=== PATIENT | male | born 1975 | race Caucasian/White ===

== ENCOUNTER 2021-04-12 12:03 | Outpatient (CLI) | payer OTHER, SELFPAY ==
[2021-04-12] MEDS: 0.9% Saline Lock 10 ML Syringe IV (12:28)
[2021-04-12 12:29] VITALS: BP 142/92; PULSE 88; RESP 16; TEMP 36.8; O2SAT 98; BMI 37.6
[2021-04-12 13:05] VITALS: BP 145/92; PULSE 90; RESP 16; TEMP 36.8; O2SAT 98
[2021-04-12 14:01] VITALS: BP 106/64; PULSE 90; RESP 16; TEMP 36.7; O2SAT 98
== END 2021-04-12 14:02 | disposition home or self-care (01) ==
LOC: MS3OUT 12:03 → MS3 12:05
PROVIDERS: PCP Nurse Practitioner Family; Referring Provider Nurse Practitioner Adult Health; Visit Provider Nurse Practitioner Adult Health
DX: Z23 Encounter for immunization (principal); U07.1 COVID-19
CPT/HCPCS: J7050; M0245; Q0245; A4216